=== PATIENT | male | born 1945 | race Caucasian/White ===

== ENCOUNTER 2022-04-24 11:35 | Outpatient (CLI) | payer MEDICARE ==
[2022-04-24 13:18] LABS: Anion Gap 18 mmol/L (10-20); BUN (Urea Nitrogen) 94 mg/dL (8.4-25.7); Calc. Creatinine Clearance 0 mL/min (70-130); Calcium 9.3 mg/dL (7.8-10.44); Carbon Dioxide 20 mmol/L (23-31); Chloride 105 mmol/L (98-107); Estimated GFR 29; Glucose 91 mg/dL (83-110); Potassium 5.8 mmol/L (3.5-5.1); Sodium 137 mmol/L (136-145)
== END 2022-04-24 11:36 | disposition home or self-care (01) ==
LOC: CSHLAB 11:35 → EDSTATUS 04-27 10:30
PROVIDERS: ATTEND Surgery
DX: Z01.818 Encounter for other preprocedural examination (principal); Z20.822 Contact with and (suspected) exposure to COVID-19
CPT/HCPCS: 80048; 87811; 93005; 93010

== ENCOUNTER 2022-06-01 05:57 | Day surgery (SDC) | payer MEDICARE ==
[2022-05-30 14:56] VITALS: BMI 26.4
[2022-06-01] MEDS ORDERED: PROPOFOL 20 ML ONE (06:48)
[2022-06-01] MEDS ORDERED: Rocuronium Bromide 10 MG/ML (10ML VIAL) ONE (06:48)
[2022-06-01] MEDS ORDERED: Ondansetron PF 4 MG/2 ML Vial ONE (06:48)
[2022-06-01] MEDS ORDERED: Fentanyl 100 MCG/2 ML VIAL ONE (06:48)
[2022-06-01] MEDS ORDERED: Dexamethasone 4 mg/ml Vial ONE (06:48)
[2022-06-01] MEDS ORDERED: EPINEPHrine 1 MG/ML AMP ONE (07:07)
[2022-06-01] MEDS ORDERED: Bupivacaine PF 0.5% 30 ML VIAL ONE (07:07)
[2022-06-01] MEDS ORDERED: CEFAZOLIN 2 GM VIAL ONE (07:26)
[2022-06-01] MEDS ORDERED: Glycopyrrolate 0.2 MG/ML 5 ML SYRINGE ONE (08:27)
[2022-06-01] MEDS ORDERED: Acetaminophen 325 MG TAB PO PRN (08:46)
[2022-06-01] MEDS ORDERED: HYDROcodone/Acetaminophen 5/325 mg Tablet PO PRN ×2 (08:46)
[2022-06-01] MEDS ORDERED: HYDROcodone/Acetaminophen 5/325 mg Tablet ONE (09:30)
== END 2022-06-01 10:05 | disposition home or self-care (01) ==
LOC: CSHSDC 05:57
PROVIDERS: ATTEND Surgery
PROC: 0YU64JZ Supplement Left Inguinal Region with Synthetic Substitute, Percutaneous Endoscopic Approach (ICD-10-PCS; principal; 2022-06-01)
DX: K40.91 Unilateral inguinal hernia, without obstruction or gangrene, recurrent (principal); I12.9 Hypertensive chronic kidney disease with stage 1 through stage 4 chronic kidney disease, or unspecified chronic kidney disease; N18.31 Chronic kidney disease, stage 3a; E78.5 Hyperlipidemia, unspecified; H91.90 Unspecified hearing loss, unspecified ear; H40.9 Unspecified glaucoma; H26.9 Unspecified cataract; Z79.82 Long term (current) use of aspirin; Z79.899 Other long term (current) drug therapy; Z20.822 Contact with and (suspected) exposure to COVID-19; Z98.890 Other specified postprocedural states
CPT/HCPCS: 49651; C1713; J0171; J0690; J1100; J2405; J2704; J3010; S0020

== ENCOUNTER 2023-04-09 10:41 | Observation (INO) | payer MEDICARE ==
[2023-04-09 11:17] LABS: #Eosinphils 0.1 10x3/uL (0.0-0.5); #Monocytes 1.2 10x3/uL (0.0-1.1); #Neutrophils 9.8 10x3/uL (1.5-8.4); %Basophils 0.2 % (0.0-2.0); %Eosinophils 0.4 % (0.0-6.0); %Lymphocytes 7.4 % (18.0-47.0); %Monocytes 10.1 % (0.0-10.0); %Neutrophils 81.2 % (40.0-75.0); Hematocrit 35.7 % (38.8-50.0); Hemoglobin 12.1 g/dL (13.5-17.5); Mean Corpuscular HGB CONC 33.9 g/dL (32.0-36.0); Mean Corpuscular Hemoglobin 31.9 pg (27.0-33.0); Mean Corpuscular Volume 94.2 fl (81.2-95.1); Mean Platelet Volume 10.5 fl (7.4-10.4); Platelet Count 253 10x3/uL (150-450); RBC Distribution Width 13.2 % (11.5-14.5); Red Blood Cell (RBC) Count 3.79 10x6/uL (4.32-5.72); White Blood Cell (WBC) Count 12.1 10x3/uL (3.5-10.5)
[2023-04-09 11:33] LABS: ALT (SGPT) 23 U/L (8-55); AST (SGOT) 20 U/L (5-34); Albumin 3.7 g/dL (3.4-4.8); Alkaline Phosphatase 83 U/L (40-110); Anion Gap 15 mmol/L (10-20); BUN (Urea Nitrogen) 47 mg/dL (8.4-25.7); Bilirubin, Total 0.9 mg/dL (0.2-1.2); Calc. Creatinine Clearance 0 mL/min (70-130); Carbon Dioxide 23 mmol/L (23-31); Chloride 100 mmol/L (98-107); Estimated GFR 27; Glucose 204 mg/dL (83-110); Potassium 4.3 mmol/L (3.5-5.1); Protein, Total 6.7 g/dL (5.8-8.1); Sodium 134 mmol/L (136-145)
[2023-04-09 11:44] LABS: Bilirubin Neg (Negative); Blood, Urine 150 (Negative); Clarity Clear (Clear); Glucose, Urine (Dipstick) Normal (Negative); Ketone, Urine Negative (Negative); Leukocyte 25 (Negative); Nitrite Negative (Negative); Protein, Urine (Dipstick) 30 mg/dl (Neg-Trace); Specific Gravity, Urine 1.015 (1.005-1.030); Urobilinogen Normal mg/dL (Less than 2)
[2023-04-09 11:54] LABS: CAUTI Indications for Culture Pelvic or flank pain; WBC/HPF 0-3 HPF (0-3)
[2023-04-09 11:55] LABS: Bacteria/HPF Rare-Few HPF (None Seen); Squamous Epithelial 0-3 HPF (0-3)
[2023-04-09 11:57] LABS: Urine Culture Reflex No No
[2023-04-09] MEDS ORDERED: Acetaminophen 325 MG TAB PO PRN (14:32)
[2023-04-09] MEDS ORDERED: Ondansetron PF 4 MG/2 ML Vial IVP PRN (14:32)
[2023-04-09] MEDS ORDERED: Ondansetron ODT 4 MG TAB PO PRN (14:32)
[2023-04-09] MEDS ORDERED: cefTRIAXone\\ROCEPHIN 1 GM in Sodium Chloride 0.9% 100 ML IVPB SCH (18:30)
[2023-04-09] MEDS ORDERED: cefTRIAXone (ROCEPHIN) 1 GM VIAL ONE (18:45)
[2023-04-09] MEDS: Sodium Chloride 0.9% 1,000 ML IV SCH (19:18)
[2023-04-09 22:51] VITALS: BMI 23.7
[2023-04-10 05:26] LABS: #Eosinphils 0.2 10x3/uL (0.0-0.5); #Monocytes 1.5 10x3/uL (0.0-1.1); #Neutrophils 6.7 10x3/uL (1.5-8.4); %Basophils 0.4 % (0.0-2.0); %Eosinophils 1.9 % (0.0-6.0); %Lymphocytes 14.1 % (18.0-47.0); %Monocytes 14.8 % (0.0-10.0); %Neutrophils 68.1 % (40.0-75.0); Hematocrit 33.3 % (38.8-50.0); Hemoglobin 10.9 g/dL (13.5-17.5); Mean Corpuscular HGB CONC 32.7 g/dL (32.0-36.0); Mean Corpuscular Hemoglobin 31.5 pg (27.0-33.0); Mean Corpuscular Volume 96.2 fl (81.2-95.1); Mean Platelet Volume 11.2 fl (7.4-10.4); Platelet Count 257 10x3/uL (150-450); RBC Distribution Width 13.2 % (11.5-14.5); Red Blood Cell (RBC) Count 3.46 10x6/uL (4.32-5.72); White Blood Cell (WBC) Count 9.9 10x3/uL (3.5-10.5)
[2023-04-10 05:40] LABS: Anion Gap 16 mmol/L (10-20); BUN (Urea Nitrogen) 39 mg/dL (8.4-25.7); Calc. Creatinine Clearance 36 mL/min (70-130); Calcium 8.7 mg/dL (7.8-10.44); Carbon Dioxide 21 mmol/L (23-31); Chloride 106 mmol/L (98-107); Estimated GFR 33; Glucose 105 mg/dL (83-110); Potassium 4.2 mmol/L (3.5-5.1); Sodium 139 mmol/L (136-145)
[2023-04-10] MEDS: Sodium Chloride 0.9% 1,000 ML IV SCH (06:42)
[2023-04-10] MEDS ORDERED: traMADol HCl 50 MG TAB PO PRN (14:54)
[2023-04-10] MEDS ORDERED: Morphine 2 MG/ML VIAL SLOW IVP PRN (15:15)
[2023-04-10] MEDS: Lactated Ringer's 1,000 ML IV SCH (16:24)
[2023-04-10 16:53] LABS: Anion Gap 14 mmol/L (10-20); BUN (Urea Nitrogen) 36 mg/dL (8.4-25.7); Calc. Creatinine Clearance 38 mL/min (70-130); Calcium 8.9 mg/dL (7.8-10.44); Carbon Dioxide 22 mmol/L (23-31); Chloride 107 mmol/L (98-107); Estimated GFR 35; Glucose 118 mg/dL (83-110); Potassium 4.4 mmol/L (3.5-5.1); Sodium 139 mmol/L (136-145)
[2023-04-10] MEDS ORDERED: cefTRIAXone\\ROCEPHIN 1 GM in Sodium Chloride 0.9% 100 ML IVPB SCH (18:00)
[2023-04-10] MEDS ORDERED: Rosuvastatin 10 MG TAB PO SCH (21:00)
[2023-04-11 05:05] LABS: #Eosinphils 0.2 10x3/uL (0.0-0.5); #Monocytes 1.1 10x3/uL (0.0-1.1); #Neutrophils 6.2 10x3/uL (1.5-8.4); %Basophils 0.4 % (0.0-2.0); %Eosinophils 2.2 % (0.0-6.0); %Lymphocytes 17.9 % (18.0-47.0); %Monocytes 11.5 % (0.0-10.0); %Neutrophils 66.8 % (40.0-75.0); Hematocrit 33.8 % (38.8-50.0); Hemoglobin 11.3 g/dL (13.5-17.5); Mean Corpuscular HGB CONC 33.4 g/dL (32.0-36.0); Mean Corpuscular Hemoglobin 31.8 pg (27.0-33.0); Mean Corpuscular Volume 95.2 fl (81.2-95.1); Platelet Count 273 10x3/uL (150-450); RBC Distribution Width 13.2 % (11.5-14.5); Red Blood Cell (RBC) Count 3.55 10x6/uL (4.32-5.72); White Blood Cell (WBC) Count 9.4 10x3/uL (3.5-10.5)
[2023-04-11 05:20] LABS: Anion Gap 14 mmol/L (10-20); BUN (Urea Nitrogen) 32 mg/dL (8.4-25.7); Calc. Creatinine Clearance 41 mL/min (70-130); Calcium 8.7 mg/dL (7.8-10.44); Carbon Dioxide 22 mmol/L (23-31); Chloride 109 mmol/L (98-107); Estimated GFR 39; Glucose 103 mg/dL (83-110); Potassium 4.1 mmol/L (3.5-5.1); Sodium 141 mmol/L (136-145)
[2023-04-11] MEDS: Lactated Ringer's 1,000 ML IV SCH (07:28)
[2023-04-11 08:19] VITALS: BP 167/89; TEMP 97.6
== END 2023-04-11 11:57 | disposition home or self-care (01) ==
LOC: CSHERS 10:41 → CSHERHOLD 14:32 → CSHTELE 22:06 → INTOOBSV 04-10 14:52 → OBSVTOIN 04-10 14:52
PROVIDERS: ADMIT Student in an Organized Health Care Education/Training Program; ATTEND Family Medicine
DX: K40.90 Unilateral inguinal hernia, without obstruction or gangrene, not specified as recurrent (principal); N20.2 Calculus of kidney with calculus of ureter; I10 Essential (primary) hypertension; E78.5 Hyperlipidemia, unspecified; N17.9 Acute kidney failure, unspecified; N18.30 Chronic kidney disease, stage 3 unspecified; N39.0 Urinary tract infection, site not specified
CPT/HCPCS: 74176; 76870; 80048 ×3; 80053; 81001; 85025 ×3; 87040; 87086; 93976; 94760; 96374; 96376; G0378 ×4; 36415; J0696; J3490; J7050; J7120

== ENCOUNTER 2023-05-07 08:55 | Outpatient (CLI) | payer MEDICARE ==
[2023-05-07] MEDS ORDERED: Iopamidol 300 61% 100 ML VIAL FS ONE (10:04)
== END 2023-05-07 08:56 | disposition home or self-care (01) ==
LOC: CSHCT 08:55
PROVIDERS: ATTEND Surgery
DX: N28.9 Disorder of kidney and ureter, unspecified (principal); N13.30 Unspecified hydronephrosis; K40.90 Unilateral inguinal hernia, without obstruction or gangrene, not specified as recurrent; Z98.890 Other specified postprocedural states; N28.1 Cyst of kidney, acquired; K57.30 Diverticulosis of large intestine without perforation or abscess without bleeding
CPT/HCPCS: 74178; 96365